=== PATIENT | female | born 1990 | race Caucasian/White ===

== ENCOUNTER → 2016-09-03 | Outpatient (CLI) | payer OTHER ==
[~2016-09-03] MED LIST: AMOXICILLIN500 M1 PO; BENZONATATE PO; MEDROL4 MG/DOSE- PO; PROVENTIL17 GM IH
--- NOTE | ~2016-09-03 | EKG ---
PATIENT: NACHO BUSTILLOS UNIT #: [id number] Ventricular Rate: 57 BPM Atrial Rate: 57 BPM P-R Interval: 142 ms QRS Duration: 88 ms Q-T Interval: 426 ms QTC Calculation(Bezet): 414 ms P [place]: 49 degrees Calculated R [place]: 74 degrees Calculated T [place]: 42 degrees Diagnosis Line: Sinus bradycardia with sinus arrhythmia Diagnosis Line: Otherwise normal ECG Early repolarization Diagnosis Line: No previous ECGs available Diagnosis Line: Confirmed by PRITESH ZHANG MD ([id number]) on 09/05/2016 Diagnosis Line: 9:44:59 AM INTERPRETING MD: VICENTE STONE
[2016-09-03 08:57] LABS: URINE APPEARANCE CLEAR; URINE BILIRUBIN NEG (NEG); URINE BLOOD NEG (NEG); URINE COLOR YELLOW; URINE GLUCOSE NEG (NEG); URINE KETONE NEG (NEG); URINE LEUKOCYTE ESTERASE NEG (NEG); URINE NITRATE NEG (NEG); URINE PH 5.5 (5-8); URINE PROTEIN NEG (NEG); URINE SPECIFIC GRAVITY 1.027 (1.003-1.035)
[2016-09-03 08:58] LABS: HEMATOCRIT 46.1 % (35.0-45.0); HEMOGLOBIN 15.7 gm/dL (12.0-16.0); MEAN CELL VOLUME 90.8 FL (83-96); MEAN CORPUSCULAR HGB CONC 34.1 g/dL (30-36); MEAN PLATELET VOLUME 8.9 FL (6.5-11.5); RED BLOOD COUNT 5.08 X10e (3.90-5.30); RED CELL DISTRIBUTION WIDTH 12.3 % (11.0-15.5); WHITE BLOOD COUNT 10.7 X10e3 (4.0-10.5)
[2016-09-03 09:08] LABS: URINE SOURCE CLEAN CATCH
[2016-09-03 09:51] LABS: THYROID STIMULATING HORMONE 2.03 uIU/ml (0.34-5.60)
[2016-09-03 10:00] LABS: FREE THYROXIN (T4) 0.81 ng/dL (0.58-1.64)
[2016-09-03 10:13] LABS: ALBUMIN SERUM 3.9 g/dL (3.5-5.0); BILIRUBIN,TOTAL 0.6 mg/dL (0.2-2.0); BUN/CREATININE RATIO 17.14; CALCIUM SERUM 8.9 mg/dL (8.4-10.2); CREATININE SERUM 0.7 mg/dL (0.6-1.4); GLOM FILT RATE Estimated 119.6 mL/min (>60); POTASSIUM 3.8 mmol/L (3.5-5.1); PROTEIN TOTAL SERUM 6.9 g/dL (6.0-8.3)
== END | disposition home or self-care (01) ==
LOC: CEKG 08:20
PROVIDERS: Psychiatry & Neurology Psychiatry
DX: F33.0 Major depressive disorder, recurrent, mild (principal); F41.0 Panic disorder [episodic paroxysmal anxiety]
CPT/HCPCS: 36415; 80053; 81003; 84439; 84443; 84703; 85027; 93005